=== PATIENT | female | born 1975 | race Caucasian/White ===

== ENCOUNTER 2016-10-28 21:35 | Emergency (ER) | payer MEDICAID ==
[~2016-10-28] VITALS: Ht 162.6 cm; Wt 89.5 kg
[~2016-10-28 21:35] MED LIST: CALC-600; DEXT15SY; METH250T; PREN1TAB49
[2016-10-28 21:37] VITALS: Ht 162.6 cm; Wt 89.5 kg
[2016-10-28] MEDS ORDERED: morphine 10 MG INJ IM ONE (22:00)
[2016-10-28] MEDS ORDERED: METOCLOPRAMIDE 10 MG INJ IM ONE (22:00)
[2016-10-28] MEDS ORDERED: KETOROLAC 30 MG INJ IM STA (22:43)
[2016-10-28] MEDS ORDERED: IBUP400T22 PO (23:17)
[2016-10-28] MEDS ORDERED: DIPHENHYDRAMINE 50 MG CAP PO ONE (23:30)
[2016-10-29 00:15] VITALS: BP 132/82; PULSE 61; RESP 18
--- NOTE | 2016-10-29 01:41 | ERA ---
ER Documentation Chief Complaint Date/Time DATE: 10/29/16 TIME: 01:36 Chief Complaint headache x 1 day HPI This is a 41-year-old otherwise healthy female presenting with a chief complaint of headache 12 hours. Patient states that the headache has slowly been coming on since 1-2 days ago. Patient describes the headache as bandlike and around the entire scalp that is worse in the back of the head moving down to the neck. Patient has not taken any medications to relieve her symptoms. Patient also reports palpitation and numbness in hands bilaterally. Patient has a history of undiagnosed anxiety. No new life stresses. No recent travel. Denies chest pain, shortness of breath, change in vision or hearing, abdominal pain, nausea, vomiting, diarrhea, constipation. Patient has not had symptoms like this in the past. Nursing notes have been reviewed and are consistent with history given. ROS All systems reviewed and are negative except as per history of present illness. Medications Home Meds Active Scripts Ibuprofen* (Motrin*) 400 Mg Tab, 400 MG PO Q6, #30 TAB Prov:KALI LABOY PA-C 10/28/16 Reported Medications Dextromethorphan Hbr (Robitussin) 15 Mg/5 Ml Syrup 06/03/10 Calcium (Calcium) 500 Mg Tablet 06/03/10 Vits W-Ca,Fe,Fa(<1MG) () 1 Tab Tablet 06/03/10 Methyldopa* (Aldomet*) 250 Mg Tablet 06/03/10 Allergies Allergies: Coded Allergies: No Known Allergy (Verified Allergy, Unknown, 06/03/10) Uncoded Allergies: nkda (Allergy, Mild, 06/03/10) PMhx/Soc Hx Alcohol Use: No Hx Substance Use: No Hx Tobacco Use: No Smoking Status: Never smoker Physical Exam Vitals Vital Signs Date Time Temp Pulse Resp B/P Pulse Ox O2 Delivery O2 Flow Rate FiO2 10/29/16 00:15 61 18 132/82 97 Room Air 10/28/16 21:37 98.3 67 20 167/81 100 Physical Exam Const: Overweight healthy-appearing 40-year-old female in no acute distress. Head: Normocephalic, Atraumatic. Eyes: Non-injected; No discharge or foreign body. EOMI and HOLLY bilaterally. Ears: Normal External Ears, EACs clear, TM normal bilaterally without erythema. Nose: Normal external nose; no discharge, septal deviation, or sinus tenderness. Oral: No oral edema visualized. Mucous membranes moist and pink. Neck: No cervical lymphadenopathy, masses or goiter palpated. Trachea midline. Supple ~ No meningismus. Pulm: Good air movement in upper and lower respiratory tracts. No dyspnea, stridor, tripoding or drooling. Clear to auscultation bilaterally. Cardio: Regular rate and rhythm; No murmurs, gallops or rubs auscultated. No JVD grossly observed. Radial and posterior tibial pulses 2+ bilaterally. No cyanosis. Capillary refill less than 2 seconds. Abd: Soft, non tender, non distended. No guarding, masses. Normal bowel sounds. No McBurney's point tenderness. MS: Normal motor strength, normal tone with gross examination. Skin: No petechiae or rashes. No ulcer, induration, jaundice. Good turgor. Back: No midline, flank or CVA tenderness. Ext: No edema or palpable cord. Normal movement of all extremities grossly observed. Neur: Awake, alert and oriented x3. Neurovascularly intact bilaterally. Psych: Normal Mood and Affect. Results 24 hrs Current Medications Medications (Trade) Dose Ordered Sig/Elida Route PRN Reason Start Time Stop Time Status Last Admin Dose Admin Morphine Sulfate (morphine) 4 mg ONCE ONCE IM 10/28/16 22:00 10/28/16 22:01 DC 10/28/16 22:07 Metoclopramide HCl (Reglan) 10 mg ONCE ONCE IM 10/28/16 22:00 10/28/16 22:01 DC 10/28/16 22:09 Ketorolac Tromethamine (Toradol) 30 mg ONCE STAT IM 10/28/16 22:43 10/28/16 22:44 DC 10/28/16 23:02 Diphenhydramine HCl (Benadryl) 50 mg ONCE ONCE PO 10/28/16 23:30 10/28/16 23:31 DC 10/28/16 23:08 Procedures/MDM This is a overweight but otherwise healthy 40-year-old female appearing in no acute distress with a chief complaint of headache. Further evaluation reveals palpitations and tingling in the hands bilaterally. Patient signs and symptoms are most consistent with anxiety attack. EKG was taken to rule out ACS. EKG was read by my attending as normal sinus rhythm, incomplete right bundle branch block, good baseline, no ST elevation or depression, no T-wave abnormalities. At this time I very little suspicion for electrolyte disturbances, ACS, obstruction, pulmonary embolism, risk of harm to herself or others as she has denied suicidal/homicidal ideations, or intracranial pathology. Patient's most likely diagnosis is anxiety with secondary diagnoses of tension type headache. Patient was given a headache cocktail in the ED consisting of 4 mg morphine IM, 50 mg of ketorolac IM, 25 mg of Benadryl IM and Reglan 20 mg IM. Patient had relief of the headache and other symptoms. I have spoke with the patient regarding their condition and future management. They have verbally responded that they understand their status and treatment plan. The patients vitals are stable, and their current condition is appropriate for discharge. The patient will be given discharge instructions with return precautions. Departure Diagnosis: Primary Impression: Anxiety Condition: Stable Patient Instructions: Anxiety Reaction Additional Instructions: Chris un seguimiento con desai PCP dentro de los prximos 1-3 land para michele evaluaci n ms completa y michele posible derivacin a un especialista. Devuelva el departamento de emergencia inmediatamente si los sntomas empeoran o cambian. Si tiene alguna pregunta con respecto a los medicamentos, consulte con desai farmac utico o con nosotros antes de salir. Si se producen reacciones adversas mientras keisha arianna medicamentos, suspenda el tratamiento y regrese inmediatamente al servicio de urgencias. Yemassee arianna medicamentos segn las indicaciones y complete el curso completo del tratamiento. KALI LABOY PA-C Oct 29, 2016 01:41
== END 2016-10-29 00:16 | disposition home or self-care (01) ==
LOC: FTE 21:35
DX: F41.9 Anxiety disorder, unspecified (principal); R00.2 Palpitations
CPT/HCPCS: 93005; 96372; J1885; J2270; J2765; Z7502; Z7610

== ENCOUNTER 2017-02-08 11:51 | Emergency (ER) | payer MEDICAID ==
[~2017-02-08] VITALS: Wt 90.3 kg
[~2017-02-08 11:51] MED LIST changes: +IBUP400T22 PO
[2017-02-08] MEDS ORDERED: KETOROLAC 60 MG INJ IM STA (12:20)
[2017-02-08] MEDS ORDERED: LORAZEPAM 1 MG TAB PO ONE (12:30)
--- NOTE | 2017-02-08 13:16 | RADRPT ---
PROCEDURE: XR Chest. CLINICAL INDICATION: Chest pain. TECHNIQUE: Single frontal view. COMPARISON: None. FINDINGS: The lungs are clear. The heart size is normal. There is no pleural effusion. There is no pneumothorax. IMPRESSION: 1. Normal chest radiograph. RPTAT: QQ .Naman Carrillo MD, Date Time Electronically viewed and signed by .Naman Carrillo MD, on 02/08/2017 13:15 .R/
[2017-02-08 13:28] LABS: ADD UMIC NO; UR ASCORBIC ACID NEGATIVE (NEGATIVE); UR BILIRUBIN (Dip) NEGATIVE (NEGATIVE); UR BLOOD (Dip) NEGATIVE (NEGATIVE); UR CLARITY CLEAR (CLEAR); UR COLOR STRAW (YELLOW); UR GLUCOSE (Dip) NEGATIVE (NEGATIVE); UR KETONES (Dip) NEGATIVE (NEGATIVE); UR LEUKOCYTE ESTERASE (Dip) NEGATIVE Leu/ul (NEGATIVE); UR NITRITE (Dip) NEGATIVE (NEGATIVE); UR SPECIFIC GRAVITY (Dip) 1.009 (1.003-1.030); UR TOTAL PROTEIN (Dip) NEGATIVE (NEGATIVE); UR UROBILINOGEN (Dip) NEGATIVE (NEGATIVE)
[2017-02-08] MEDS ORDERED: AMOX1TAB10 PO (14:14)
[2017-02-08] MEDS ORDERED: FIORICET PO (14:14)
--- NOTE | 2017-02-08 14:22 | ERD ---
ER Documentation Chief Complaint Chief Complaint weaver, nasal pain, sore throat, neck pain HPI 41-year-old female patient with a past medical history of hypertension presents to the ED feeling like she has palpitations and cannot breathe through her throat. States that she has a headache and neck pain and facial pain that started intermittently for the past weeks. Reports that she feels nervous Denies any chest pain, shortness of breath, wheezing, abdominal pain, nausea, vomiting, diarrhea, odynophagia, dysphagia, slurred speech, weakness. ROS All systems reviewed and are negative except as per history of present illness. Medications Home Meds Active Scripts Acetamin/Butalbital/Caffeine* (Fioricet*) [id number] Tab, 1 TAB PO Q6H Y for PAIN, #30 TAB Prov:JERARDO FREED PA-C 02/08/17 Amoxicillin/Potassium Clav (Amox-Clav 875-125 mg Tablet) 875-125 mg Tab, 1 TAB PO BID for 5 Days, #14 TAB Prov:JERARDO FREED PA-C 02/08/17 Ibuprofen* (Motrin*) 400 Mg Tab, 400 MG PO Q6, #30 TAB Prov:KALI LABOY PA-C 10/28/16 Reported Medications Dextromethorphan Hbr (Robitussin) 15 Mg/5 Ml Syrup 06/03/10 Calcium (Calcium) 500 Mg Tablet 06/03/10 Vits W-Ca,Fe,Fa(<1MG) () 1 Tab Tablet 06/03/10 Methyldopa* (Aldomet*) 250 Mg Tablet 06/03/10 Allergies Allergies: Coded Allergies: No Known Allergy (Verified Allergy, Unknown, 06/03/10) Uncoded Allergies: nkda (Allergy, Mild, 06/03/10) PMhx/Soc Medical and Surgical Hx: pt denies Medical Hx, pt denies Surgical Hx Hx Alcohol Use: No Hx Substance Use: No Hx Tobacco Use: No Physical Exam Vitals Vital Signs Date Time Temp Pulse Resp B/P Pulse Ox O2 Delivery O2 Flow Rate FiO2 02/08/17 11:54 98.2 72 20 138/84 97 Physical Exam Const: Zzo-gqj-mniwnrqzh, well-nourished. In no acute distress. Head: Atraumatic, normocephalic. Tenderness to palpation of the bilateral maxillary and frontal sinuses. Eyes: Normal Conjunctiva without injection. No purulent discharge. PERRLA. EOMI ENT: Normal external ear. Ear canal without erythema. Tympanic membrane pearly robles without effusion or bulging. Nasal canal clear with normal turbinates. Moist oropharynx without tonsillar exudates. Non-erythematous pharynx. Uvula midline. No drooling. No trismus. Neck: No cervical midline tenderness. Full range of motion. No meningismus. No cervical lymphadenopathy. No JVD. Resp: Clear to auscultation bilaterally. No wheezing, rhonchi, rales, or crackles. No accessory muscle use. No retractions. Cardio: Regular rate and rhythm. No murmurs, rubs or gallops. Skin: Normal skin turgor. No petechiae or rashes Back: No midline tenderness. No CVA tenderness. Ext: No cyanosis, or edema. Distal pulses intact bilaterally. Neur: Awake and alert. Normal gait. Normal coordination. Cranial Nerves II- VII intact. Normal finger to nose. Muscle strength 5/5. Sensation intact. Psych: Normal Mood and Affect Results 24 hrs Laboratory Tests Test 02/08/17 13:00 Urine Color STRAW Urine Clarity CLEAR Urine pH 5.0 Urine Specific Eagan 1.009 Urine Ketones NEGATIVEmg/dL Urine Nitrite NEGATIVEmg/dL Urine Bilirubin NEGATIVEmg/dL Urine Urobilinogen NEGATIVEmg/dL Urine Leukocyte Esterase NEGATIVELeu/ul Urine Hemoglobin NEGATIVEmg/dL Urine Glucose NEGATIVEmg/dL Urine Total Protein NEGATIVEmg/dl Current Medications Medications (Trade) Dose Ordered Sig/Elida Route PRN Reason Start Time Stop Time Status Last Admin Dose Admin Lorazepam (Ativan) 1 mg ONCE ONCE PO 02/08/17 12:30 02/08/17 12:31 DC 02/08/17 12:53 Ketorolac Tromethamine (Toradol) 60 mg ONCE STAT IM 02/08/17 12:20 02/08/17 12:22 DC 02/08/17 12:53 Procedures/MDM 41-year-old female patient with a past medical history of hypertension presents to the ED complaining of headache, sinus pain, sore throat, neck pain, palpitations, globus sensation that started intermittently for 2 weeks. Patient is afebrile and nontoxic-appearing. Patient has normal vital signs. EKG, chest x-ray, urinalysis, urine was ordered to further evaluate patient. Patient was given Ativan, Toradol here in the ED with improvement of her symptoms. No leukocyte esterase, nitrite, hematuria noted on urinalysis. Negative urine . EKG reviewed and interpreted by Dr. Joy Rate/Rhythm: [57 bpm, Normal Sinus Rhythm] No ectopy, no ST elevations, normal axis. QRS, ST, T-waves: [No changes consistent w/ acute ischemia] Impression: [No evidence of ischemia or arrhythmia] PROCEDURE: XR Chest. CLINICAL INDICATION: Chest pain. TECHNIQUE: Single frontal view. COMPARISON: None. FINDINGS: The lungs are clear. The heart size is normal. There is no pleural effusion. There is no pneumothorax. IMPRESSION: 1. Normal chest radiograph. Differentials include sinusitis, migraines, tension headache, anxiety. Low suspicion for acute myocardial infarction, pneumothorax, pneumonia, cardiac tamponade, Sdyfv-Qqnsefqws-Gijes Syndrome, Brugada Syndrome, pulmonary embolism , AAA, aortic dissection, thoracic aortic dissection, endocarditis, pericarditis , cocaine-related ischemia, Boerhaave's syndrome, cardiac dysrhythmias, meningitis, intracranial bleed, seizure, stroke, TIA or other emergent conditions. Discharge medications: Fioricet, Augmentin Follow up with primary care physician in 1-2 days. Instructed patient to return to the ED sooner for any worsening symptoms. Patient's questions were answered. Patient understood and agreed with discharge plan. Patient discharged stable. Departure Diagnosis: Primary Impression: Multiple complaints Condition: Stable Patient Instructions: Anxiety Reaction, Headache, Unspecified, Sinusitis, Abx Tx Referrals: [facility] YOU HAVE RECEIVED A MEDICAL SCREENING EXAM AND THE RESULTS INDICATE THAT YOU DO NOT HAVE A CONDITION THAT REQUIRES URGENT TREATMENT IN THE EMERGENCY DEPARTMENT. FURTHER EVALUATION AND TREATMENT OF YOUR CONDITION CAN WAIT UNTIL YOU ARE SEEN IN YOUR DOCTORS OFFICE WITHIN THE NEXT 1-2 DAYS. IT IS YOUR RESPONSIBILITY TO MAKE AN APPOINTMENT FOR FOLOW-UP CARE. IF YOU HAVE A PRIMARY DOCTOR --you should call your primary doctor and schedule an appointment IF YOU DO NOT HAVE A PRIMARY DOCTOR YOU CAN CALL OUR PHYSICIAN REFERRAL HOTLINE AT IF YOU CAN NOT AFFORD TO SEE A PHYSICIAN YOU CAN CHOSE FROM THE FOLLOWING [facility] [address] [facility]. [phone]) [phone] [facility]. [facility] [address] [facility] [address] [facility]. [facility] [address] [facility]. [facility] [address] [facility]. [facility] YOU HAVE RECEIVED A MEDICAL SCREENING EXAM AND THE RESULTS INDICATE THAT YOU DO NOT HAVE A CONDITION THAT REQUIRES URGENT TREATMENT IN THE EMERGENCY DEPARTMENT. FURTHER EVALUATION AND TREATMENT OF YOUR CONDITION CAN WAIT UNTIL YOU ARE SEEN IN YOUR DOCTORS OFFICE WITHIN THE NEXT 1-2 DAYS. IT IS YOUR RESPONSIBILITY TO MAKE AN APPOINTMENT FOR FOLOW-UP CARE. IF YOU HAVE A PRIMARY DOCTOR --you should call your primary doctor and schedule and appointment IF YOU DO NOT HAVE A PRIMARY DOCTOR YOU CAN CALL OUR PHYSICIAN REFERRAL HOTLINE AT . IF YOU CAN NOT AFFORD TO SEE A PHYSICIAN YOU CAN CHOSE FROM THE FOLLOWING [facility] INSTITUTIONS: [facility] [address] [place] [address] [facility] [address] [place] [address] [facility] [address] [place] [address] [facility] URGENT CARE/SPECIALTIES Additional Instructions: Llame al doctor MAANA y reese michele MEGAN PARA DENTRO DE 2-3 SARMIENTO.Dgale a la secretaria que nosotros le instruimos hacer esta megan.Avise o llame si desai condicin se empeora antes de la megan. Regresa aqui si peor o no mejor. JERARDO FREED PA-C Feb 08, 2017 14:22
[2017-02-08 14:35] VITALS: BP 125/67; PULSE 76; RESP 19
== END 2017-02-08 15:43 | disposition home or self-care (01) ==
LOC: FTE 11:51
DX: J02.9 Acute pharyngitis, unspecified (principal); M54.2 Cervicalgia; R00.2 Palpitations; J34.89 Other specified disorders of nose and nasal sinuses
CPT/HCPCS: 71010; 81003; 93005; 96372; J1885; Z7502; Z7610

== ENCOUNTER 2017-02-24 19:30 | Emergency (ER) | payer MEDICAID ==
[~2017-02-24] VITALS: Ht 157.5 cm; Wt 91.8 kg
[~2017-02-24 19:30] MED LIST changes: +AMOX1TAB10 PO; +FIORICET PO
[2017-02-24 19:49] VITALS: Ht 157.5 cm; Wt 91.8 kg
--- NOTE | 2017-02-25 00:02 | RADRPT ---
PROCEDURE: XR Chest. CLINICAL INDICATION: Chest Pain. TECHNIQUE: Single frontal view of the chest was obtained COMPARISON: Chest radiograph dated February 08, 2017. FINDINGS: The heart and mediastinum are within normal limits. There are low lung volumes with no focal consolidations, pleural effusion, or pneumothorax. The osseous structures are unremarkable. IMPRESSION: 1. Low lung volumes with no acute cardiopulmonary disease. RPTAT:AAJJ Physician Elaina Date Time Electronically viewed and signed by Susanne Arredondo Physician on 02/25/2017 00:02 QL/
[2017-02-25 00:57] LABS: BASOPHIL # 0.1 10^3/ul (0.0-0.1); BASOPHILS % 0.6 % (0.0-2.0); EOSINOPHILS # 0.1 10^3/ul (0.0-0.5); EOSINOPHILS % 1.2 % (0.0-7.0); HEMATOCRIT 41.9 % (37.0-47.0); HEMOGLOBIN 13.4 g/dl (12.0-16.0); LYMPHOCYTES # 3.4 10^3/ul (0.8-2.9); LYMPHOCYTES % 31.2 % (15.0-51.0); MEAN CORPUSCULAR HEMOGLOBIN 28.5 pg (29.0-33.0); MEAN CORPUSCULAR VOLUME 89.1 fl (82.0-101.0); MEAN PLATELET VOLUME 12.3 fl (7.4-10.4); MONOCYTE # 0.6 10^3/ul (0.3-0.9); MONOCYTES % 5.8 % (0.0-11.0); NEUTROPHIL # 6.7 10^3/ul (1.6-7.5); NEUTROPHILS % 60.8 % (39.0-77.0); PLATELET COUNT 233 10^3/UL (140-415); RED CELL DISTRIBUTION WIDTH 13.6 % (11.5-14.5)
[2017-02-25 01:10] LABS: ADD UMIC NO; UR ASCORBIC ACID NEGATIVE (NEGATIVE); UR BILIRUBIN (Dip) NEGATIVE (NEGATIVE); UR BLOOD (Dip) NEGATIVE (NEGATIVE); UR CLARITY CLEAR (CLEAR); UR COLOR YELLOW (YELLOW); UR GLUCOSE (Dip) NEGATIVE (NEGATIVE); UR KETONES (Dip) NEGATIVE (NEGATIVE); UR LEUKOCYTE ESTERASE (Dip) NEGATIVE Leu/ul (NEGATIVE); UR NITRITE (Dip) NEGATIVE (NEGATIVE); UR SPECIFIC GRAVITY (Dip) 1.009 (1.003-1.030); UR TOTAL PROTEIN (Dip) NEGATIVE (NEGATIVE); UR UROBILINOGEN (Dip) NEGATIVE (NEGATIVE)
[2017-02-25 01:16] LABS: ALANINE AMINOTRANSFERASE 35 IU/L (13-69); ALBUMIN 4.2 g/dl (3.3-4.9); ALKALINE PHOSPHATASE 102 IU/L (42-121); ANION GAP 13 (8-16); ASPARTATE AMINO TRANSFERASE 23 IU/L (15-46); BILIRUBIN,INDIRECT 0.4 mg/dl (0-1.1); BILIRUBIN,TOTAL 0.4 mg/dl (0.2-1.3); BLOOD UREA NITROGEN 12 mg/dl (7-20); CALCIUM 9.8 mg/dl (8.4-10.2); CARBON DIOXIDE 32 mmol/L (21-31); CHLORIDE 102 mmol/L (97-110); CREATININE 0.65 mg/dl (0.44-1.00); GLUCOSE 92 mg/dl (70-220); POTASSIUM 3.8 mmol/L (3.5-5.1); SODIUM 143 mmol/L (135-144); TOTAL PROTEIN 7.7 g/dl (6.1-8.1)
[2017-02-25 01:28] LABS: B-TYPE NATRIURETIC PEPTIDE 59 PG/ML (0-125)
[2017-02-25 01:29] LABS: TROPONIN-I < 0.012 ng/ml (0.00-0.12)
[2017-02-25] MEDS ORDERED: morphine 4 MG/ML VIAL IV STA (01:34)
[2017-02-25] MEDS ORDERED: ONDANSETRON 4 MG INJ IV STA (01:34)
--- NOTE | 2017-02-25 01:53 | ERD ---
ER Documentation Chief Complaint Chief Complaint c/o chest pressure x4 weeks, on and off, radiating to back HPI 41-year-old female complains of chest pressure for 4 weeks. O and was on and off. No nausea no vomiting no chills pain is mild to moderate intensity no exacerbating or alleviating factors. ROS All systems reviewed and are negative except as per history of present illness. Medications Home Meds Active Scripts Acetamin/Butalbital/Caffeine* (Fioricet*) [id number] Tab, 1 TAB PO Q6H Y for PAIN, #30 TAB Prov:JERARDO FREED PA-C 02/08/17 Amoxicillin/Potassium Clav (Amox-Clav 875-125 mg Tablet) 875-125 mg Tab, 1 TAB PO BID for 5 Days, #14 TAB Prov:JERARDO FREED PA-C 02/08/17 Ibuprofen* (Motrin*) 400 Mg Tab, 400 MG PO Q6, #30 TAB Prov:KALI LABOY PA-C 10/28/16 Reported Medications Dextromethorphan Hbr (Robitussin) 15 Mg/5 Ml Syrup 06/03/10 Calcium (Calcium) 500 Mg Tablet 06/03/10 Vits W-Ca,Fe,Fa(<1MG) () 1 Tab Tablet 06/03/10 Methyldopa* (Aldomet*) 250 Mg Tablet 06/03/10 Allergies Allergies: Coded Allergies: No Known Allergy (Verified Allergy, Unknown, 06/03/10) Uncoded Allergies: nkda (Allergy, Mild, 06/03/10) PMhx/Soc History of Surgery: Yes (CHOLECYSTECTOMY) Anesthesia Reaction: No Hx Neurological Disorder: No Hx Respiratory Disorders: No Hx Cardiac Disorders: Yes (HTN) Hx Psychiatric Problems: No Hx Miscellaneous Medical Probl: Yes (ANXIETY) Hx Alcohol Use: No Hx Substance Use: No Hx Tobacco Use: No Smoking Status: Never smoker Physical Exam Vitals Vital Signs Date Time Temp Pulse Resp B/P Pulse Ox O2 Delivery O2 Flow Rate FiO2 02/25/17 00:22 60 16 125/90 98 Room Air 02/24/17 23:28 98.0 69 15 143/94 96 Room Air 02/24/17 19:49 97.8 58 22 168/94 98 Physical Exam Const: [] Head: Atraumatic Eyes: Normal Conjunctiva ENT: Normal External Ears, Nose and Mouth. Neck: Full range of motion..~ No meningismus. Resp: Clear to auscultation bilaterally Cardio: Regular rate and rhythm, no murmurs Abd: Soft, non tender, non distended. Normal bowel sounds Skin: No petechiae or rashes Back: No midline or flank tenderness Ext: No cyanosis, or edema Neur: Awake and alert Psych: Normal Mood and Affect Result Diagram: 02/24/17 2335 02/24/17 2335 Results 24 hrs Laboratory Tests Test 02/24/17 23:35 02/25/17 00:15 White Blood Count 11.010^3/ul Red Blood Count 4.7010^6/ul Hemoglobin 13.4g/dl Hematocrit 41.9% Mean Corpuscular Volume 89.1fl Mean Corpuscular Hemoglobin 28.5pg Mean Corpuscular Hemoglobin Concent 32.0g/dl Red Cell Distribution Width 13.6% Platelet Count 30845^3/UL Mean Platelet Volume 12.3fl Neutrophils % 60.8% Lymphocytes % 31.2% Monocytes % 5.8% Eosinophils % 1.2% Basophils % 0.6% Nucleated Red Blood Cells % 0.0/100WBC Neutrophils # 6.710^3/ul Lymphocytes # 3.410^3/ul Monocytes # 0.610^3/ul Eosinophils # 0.110^3/ul Basophils # 0.110^3/ul Nucleated Red Blood Cells # 0.010^3/ul Sodium Level 143mmol/L Potassium Level 3.8mmol/L Chloride Level 102mmol/L Carbon Dioxide Level 32mmol/L Anion Gap 13 Blood Urea Nitrogen 12mg/dl Creatinine 0.65mg/dl Glucose Level 92mg/dl Calcium Level 9.8mg/dl Total Bilirubin 0.4mg/dl Direct Bilirubin 0.00mg/dl Indirect Bilirubin 0.4mg/dl Aspartate Amino Transf (AST/SGOT) 23IU/L Alanine Aminotransferase (ALT/SGPT) 35IU/L Alkaline Phosphatase 102IU/L Troponin I < 0.012ng/ml B-Type Natriuretic Peptide 59PG/ML Total Protein 7.7g/dl Albumin 4.2g/dl Globulin 3.50g/dl Albumin/Globulin Ratio 1.20 Urine Color YELLOW Urine Clarity CLEAR Urine pH 6.0 Urine Specific Amidon 1.009 Urine Ketones NEGATIVEmg/dL Urine Nitrite NEGATIVEmg/dL Urine Bilirubin NEGATIVEmg/dL Urine Urobilinogen NEGATIVEmg/dL Urine Leukocyte Esterase NEGATIVELeu/ul Urine Hemoglobin NEGATIVEmg/dL Urine Glucose NEGATIVEmg/dL Urine Total Protein NEGATIVEmg/dl Current Medications Medications (Trade) Dose Ordered Sig/Elida Route PRN Reason Start Time Stop Time Status Last Admin Dose Admin Morphine Sulfate (morphine) 4 mg ONCE STAT IV 02/25/17 01:34 02/25/17 01:35 DC 02/25/17 01:43 Ondansetron HCl (Zofran Inj) 4 mg ONCE STAT IV 02/25/17 01:34 02/25/17 01:35 DC 02/25/17 01:43 Procedures/MDM EKG: Rate/Rhythm: [Normal Sinus Rhythm] QRS, ST, T-waves: [No changes consistent w/ acute ischemia] Impression: [No evidence of ischemia or arrhythmia] Chest X-ray 1V Interpreted by me: Soft Tissue: No acute abnormalities Bones: No acute abnormalities Mediastinum/Cardiac Silhouette/Lungs: [No acute abnormalities] Patient's thoracic symptoms have stabilized while in the department and are stable for outpatient follow up. Exam and work up not consistent w/ ischemia, arrhythmia, PE or dissection. Departure Diagnosis: Primary Impression: Chest pain Chest pain type: unspecified Qualified Code: R07.9 - Chest pain, unspecified type Condition: Stable CALISTAGENEVA COPEChely Feb 25, 2017 01:53
[2017-02-25] MEDS ORDERED: LORA1TAB PO (02:13)
[2017-02-25 02:30] VITALS: BP 116/84; PULSE 61; RESP 16; TEMP 98
== END 2017-02-25 02:30 | disposition home or self-care (01) ==
LOC: E/R 19:30
DX: R07.89 Other chest pain (principal); I10 Essential (primary) hypertension; R06.02 Shortness of breath
CPT/HCPCS: 71010; 80053; 81003; 83880; 84484; 85025; 93005; 96374; 96375; J2270; J2405; Z7502; Z7610

== ENCOUNTER 2017-07-29 19:53 | Emergency (ER) | END 2017-07-29 20:16 | disposition home or self-care (01) ==

== ENCOUNTER 2018-11-04 21:50 | Emergency (ER) | payer MEDICAID ==
[~2018-11-04] VITALS: Ht 157.5 cm; Wt 95.5 kg
[~2018-11-04 21:50] MED LIST changes: +AMOX500C2 PO; +CETI10CA PO; +HYDR-842 PO; +IBUP-1542 PO; +IBUP-1561 PO; -IBUP400T22 PO; +LORA1TAB PO; -METH250T; +METH250T5; +NAPH15DR69 BOTH EYES
[2018-11-04 22:13] VITALS: Ht 157.5 cm; Wt 95.5 kg
[2018-11-04 23:26] VITALS: BP 166/95; PULSE 60; RESP 17
--- NOTE | 2018-11-05 00:46 | ERD ---
ER Documentation Chief Complaint Chief Complaint ITCHING ALL OVER AND ITCHY THROAT WITH REYES X 1 WK HPI This is a 42-year-old female presenting to the emergency department complaining of full body itching and scratchy throat after a B12 shot approximately 1 week ago. She denies any rashes, fevers, chills, shortness of breath, feelings of her throat closing, or other symptoms at this time. Symptoms are mild in severity. She took no medication for relief of symptoms. ROS All systems reviewed and are negative except as per history of present illness. Medications Home Meds Active Scripts Hydroxyzine Hcl* (Atarax*) 25 Mg Tab, 25 MG PO Q6H PRN for ITCHING, #20 TAB Prov:GENEVA JEAN PA-C 11/04/18 Ibuprofen* (Motrin*) 600 Mg Tab, 600 MG PO Q6H PRN for PAIN AND OR ELEVATED TEMP, #30 TAB Prov:KAYY GARCÍA NP 07/29/17 Naphazoline-Pheniramine* (Visine-A*) 15 Ml Drops, 2 DROP BOTH EYES Q4H PRN for RED EYES, #1 BOT Prov:KAYY GARCÍA REJOINER 07/29/17 Cetirizine Hcl* (Zyrtec*) 10 Mg Capsule, 10 MG PO DAILY, #30 TAB.CHEW Prov:KAYY GARCÍA REJOINER 07/29/17 Amoxicillin* (Amoxicillin*) 500 Mg Cap, 500 MG PO TID for 10 Days, CAP Prov:KAYY GARCÍA NP 07/29/17 Lorazepam* (Lorazepam*) 1 Mg Tablet, 1 MG PO Q8, #10 TAB Prov:GENEVA ALVARADO 02/25/17 Acetamin/Butalbital/Caffeine* (Fioricet*) [id number] Tab, 1 TAB PO Q6H PRN for PAIN, #30 TAB Prov:JERARDO FREED PA-C 02/08/17 Amoxicillin/Potassium Clav (Amox-Clav 875-125 mg Tablet) 875-125 mg Tab, 1 TAB PO BID for 5 Days, #14 TAB Prov:JERARDO FREED PA-C 02/08/17 Ibuprofen* (Motrin*) 400 Mg Tab, 400 MG PO Q6, #30 TAB Prov:KALI LABOY PA-C 10/28/16 Reported Medications Dextromethorphan Hbr (Robitussin) 15 Mg/5 Ml Syrup 06/03/10 Calcium (Calcium) 500 Mg Tablet 06/03/10 Vits W-Ca,Fe,Fa(<1MG) () 1 Tab Tablet 06/03/10 Methyldopa* (Aldomet*) 250 Mg Tablet 06/03/10 Allergies Allergies: Coded Allergies: No Known Allergy (Verified Allergy, Unknown, 06/03/10) Uncoded Allergies: nkda (Allergy, Mild, 06/03/10) PMhx/Soc History of Surgery: Yes (CHOLECYSTECTOMY) Anesthesia Reaction: No Hx Neurological Disorder: No Hx Respiratory Disorders: No Hx Cardiac Disorders: Yes (HTN) Hx Psychiatric Problems: No Hx Miscellaneous Medical Probl: Yes (ANXIETY) Hx Alcohol Use: No Hx Substance Use: No Hx Tobacco Use: No Smoking Status: Never smoker FmHx Family History: No diabetes Physical Exam Vitals Vital Signs Date Temp Pulse Resp B/P (MAP) Pulse Ox O2 O2 Flow FiO2 Time Delivery Rate 11/04/18 98.0 60 17 166/95 98 Room Air 23:26 (118) 11/04/18 97.3 62 18 178/90 98 22:13 (119) Physical Exam Const: No acute distress Head: Atraumatic Eyes: Normal Conjunctiva ENT: Normal External Ears, Nose and Mouth. Posterior pharynx is clear. Airway is patent. No uvulitis. Neck: Full range of motion. No meningismus. Resp: Clear to auscultation bilaterally Cardio: Regular rate and rhythm, no murmurs Abd: Soft, non tender, non distended. Normal bowel sounds Skin: No petechiae or rashes Back: No midline or flank tenderness Ext: No cyanosis, or edema Neur: Awake and alert Psych: Normal Mood and Affect Procedures/MDM 42-year-old female presenting to the emergency department with signs and symptoms most consistent with drug reaction secondary to B12 shot. There are no rashes. Airway is clear. No signs of anaphylaxis. Patient is stable and appropriate for outpatient management. Immunologic Assessment: Patient's allergic symptoms have stabilized while they have been evaluated in the department without evidence of persistent systemic reaction. Patient is healthy and capable of treating and responding to rebound reactions. Patient appropriate for outpatient allergy work up and treatment. Departure Diagnosis: Primary Impression: Drug reaction Condition: Fair Patient Instructions: Drug Reaction, Other Additional Instructions: Llame al doctor MAANA y reese michele MEGAN PARA DENTRO DE 1-2 SARMIENTO.Dgale a la secretaria que nosotros le instruimos hacer esta megan.Avise o llame si desai condicin se empeora antes de la megan. Regresa aqui si peor o no mejor. GENEVA JEAN PA-C Nov 05, 2018 00:46
== END 2018-11-04 23:22 | disposition home or self-care (01) ==
LOC: FTE 21:50
DX: L29.9 Pruritus, unspecified (principal); I10 Essential (primary) hypertension; T45.8X5A Adverse effect of other primarily systemic and hematological agents, initial encounter
CPT/HCPCS: 99282